=== PATIENT | male | born 1965 | race Caucasian/White ===

== ENCOUNTER 2018-08-23 07:30 | Day surgery (SDC) | payer BC ==
[~2018-08-23 07:30] MED LIST: LACTATED RINGERS 1,000 ML IV SCH; LIDOCAINE 1% 20 ML VIAL (10MG/ML) FOR IV START INTRADERMA PRN
[2018-08-23 08:27] VITALS: RESP 16; TEMP 97.9
[2018-08-23] MEDS ORDERED: LIDOCAINE 1% INJ 10MG/ML (20 ML MDV) ONE (09:05)
[2018-08-23] MEDS ORDERED: MIDAZOLAM 2 MG/2 ML VIAL ONE (09:05)
[2018-08-23] MEDS ORDERED: PROPOFOL 10 MG/ML 20 ML VIAL IV ONE (09:05)
[2018-08-23] MEDS ORDERED: fentaNYL (PF) 50 MCG/ML 2 ML AMP ONE (09:05)
--- NOTE | 2018-08-23 09:44 | P.PCN ---
Date of Procedure: 08/23/18 Procedure(s) Performed: Procedure: Total colonoscopy. Preoperative diagnosis: Screening for neoplasia. Postoperative diagnosis: Sigmoid diverticulosis with no evidence of acute diverticulitis, strictures, polyps or cancer. Preparation: HalfLytely prep. Sedation: Was provided by anesthesia. Brief clinical history: The patient is a 53-year-old male who is scheduled for this evaluation for screening for neoplasia age being his risk factor. He has no abdominal complaints, bleeding or anemia. This would be his first colonoscopy. Procedure: With the patient on his left lateral decubitus position and after informed consent and adequate sedation, the perianal area was inspected and it did not show any fissures or fistulas. There were no masses felt on digital rectal examination. The Olympus CFH 190L video colonoscope was then inserted in the rectum in the usual fashion and advanced to the cecum. There were several diverticular orifices seen scattered in the sigmoid but there was no evidence of acute diverticulitis or strictures. No polyps or tumors were seen. The mucosa appeared healthy. I retroflexed the endoscope in the rectum before the endoscope was withdrawn. The patient tolerated the procedure well. Plan: The patient was reassured. Discussed dietary measures. She will follow- up with you as planned and I recommended repeat exam in 10 years.
[2018-08-23 10:02] VITALS: BP 125/87; PULSE 74
== END 2018-08-23 10:27 | disposition home or self-care (01) ==
LOC: ORWHC2ENDO 07:30
DX: Z12.11 Encounter for screening for malignant neoplasm of colon (principal); K57.30 Diverticulosis of large intestine without perforation or abscess without bleeding; E78.5 Hyperlipidemia, unspecified; E07.9 Disorder of thyroid, unspecified; Z79.890 Hormone replacement therapy; Z79.899 Other long term (current) drug therapy
CPT/HCPCS: 45378; J2250; J2001; J3010; J2704

== ENCOUNTER 2023-11-03 11:15 | Day surgery (SDC) | payer BC ==
[2023-11-03 12:38] VITALS: TEMP 97.5
[2023-11-03] MEDS: LACTATED RINGERS 1,000 ML IV SCH (12:48)
[2023-11-03] MEDS ORDERED: PROPOFOL 10 MG/ML 20 ML VIAL IV ONE (13:25)
[2023-11-03] MEDS ORDERED: LIDOCAINE 1% INJ 10MG/ML (20 ML MDV) ONE (13:25)
--- NOTE | 2023-11-03 13:38 | P.PCN ---
Date of Procedure: 11/03/23 Procedure(s) Performed: BRIEF HISTORY: Patient is a 58-year-old, pleasant, white male scheduled for an upper endoscopy as a part of evaluation of intermittent dysphagia to solids for the last 6 months duration. He has long-standing history of GERD and presently on Protonix 40 mg as needed. PROCEDURE PERFORMED: Esophagogastroduodenoscopy with biopsy. PREOPERATIVE DIAGNOSIS: Lungs any history of GERD and intermittent dysphagia to solids. IV sedation per anesthesia. PROCEDURE: After informed consent was obtained, the patient was brought into the endoscopy unit. IV sedation was administered by Anesthesia under continuous monitoring. Initially the Olympus GIF-140 video endoscope was inserted into the mouth. Esophagus intubated without any difficulty. It was gradually advanced into the stomach and duodenum and carefully examined. The bulb and the second part of the duodenum appeared normal. The scope at this time was withdrawn to the stomach, adequately insufflated with air, and upon careful examination, mucosa of the antrum, had mild antral gastritis and biopsies were done from this area. Mucosa of the body, cardia and the fundus appeared normal. The scope was then withdrawn into the esophagus. The GE junction was located at 39 cm from the incisors. There were linear erosions and once a fissure ulceration in the distal esophagus consistent with LA grade C reflux esophagitis. The rest of esophagus appeared normal and the patient tolerated the procedure well. IMPRESSION: 1. Linear erosions and one superficial ulceration in the distal esophagus consistent with LA grade C reflux esophagitis. 2. Small hiatal hernia 3. Mild antral gastritis.. RECOMMENDATIONS: The findings of this examination were discussed with the patientas well as his family. He was advised to start on Protonix 40 mg twice daily for 3 months and then once daily as a maintenance dose to be taken half hour before breakfast and dinnertime and follow antireflux measures. Recommend repeat upper endoscopy in 1 year to evaluate for Adkins's esophagus].
[2023-11-03 14:42] VITALS: BP 138/83; PULSE 74; RESP 18
== END 2023-11-03 14:18 | disposition home or self-care (01) ==
LOC: ORWHC2ENDO 11:15
PROVIDERS: ATTEND Internal Medicine Gastroenterology
DX: K29.50 Unspecified chronic gastritis without bleeding (principal); K21.00 Gastro-esophageal reflux disease with esophagitis, without bleeding; K44.9 Diaphragmatic hernia without obstruction or gangrene; E78.5 Hyperlipidemia, unspecified; E07.9 Disorder of thyroid, unspecified; Z79.890 Hormone replacement therapy; Z79.899 Other long term (current) drug therapy; Z98.890 Other specified postprocedural states
CPT/HCPCS: 88305; 43239; J2001; J2704

== ENCOUNTER 2024-12-18 09:14 | Day surgery (SDC) | payer BC ==
[2024-12-13 14:04] VITALS: BMI 26.4
[~2024-12-18 09:14] MED LIST changes: +LIDOCAINE 1% (10MG/ML) FOR IV START INTRADERMA PRN; -LIDOCAINE 1% 20 ML VIAL (10MG/ML) FOR IV START INTRADERMA PRN
[2024-12-18] MEDS: IV FLUID CONTINUATION 1,000 ML IV ONE ×2 (09:56→10:22)
[2024-12-18 09:59] VITALS: TEMP 97.8
[2024-12-18] MEDS ORDERED: PROPOFOL 10 MG/ML 20 ML VIAL IV ONE (10:23)
[2024-12-18] MEDS ORDERED: LIDOCAINE HCL/PF 20 MG/ML 10 ML AMP ONE (10:23)
--- NOTE | 2024-12-18 10:35 | P.PCN ---
Date of Procedure: 12/18/24 Procedure(s) Performed: BRIEF HISTORY: Patient is a 59-year-old, pleasant, white male scheduled for upper endoscopy as a part of evaluation of severe GERD. Last EGD in October 2023 revealed LA grade C reflux esophagitis. Since then has been on Protonix 40 mg daily and symptoms are completely resolved. PROCEDURE PERFORMED: Esophagogastroduodenoscopy with biopsy. PREOPERATIVE DIAGNOSIS: Longstanding history of GERD with severe esophagitis in October 2023. IV sedation per anesthesia. PROCEDURE: After informed consent was obtained, the patient was brought into the endoscopy unit. IV sedation was administered by Anesthesia under continuous monitoring. Initially the Olympus GIF-140 video endoscope was inserted into the mouth. Esophagus intubated without any difficulty. It was gradually advanced into the stomach and duodenum and carefully examined. The bulb and the second part of the duodenum appeared normal. The scope at this time was withdrawn to the stomach, adequately insufflated with air, and upon careful examination, mucosa of the antrum, body, cardia and the fundus appeared normal. The scope was then withdrawn into the esophagus. Small hiatal hernia noted. The GE junction was located at 39 cm from the incisors. There was a 1 cm superficial ulceration in the distal esophagus consistent with LA grade C reflux esophagitis. Also there was a 3 to 4 mm Adkins's appearing mucosa proximal to the GE junction that was biopsied. The rest of the esophagus appeared normal. The patient tolerated the procedure well. IMPRESSION: 1. 1 superficial ulceration in the distal esophagus proximal to the GE junction consistent with LA grade C reflux esophagitis. 2. Short segment Adkins's esophagus 3. Small hiatal hernia. RECOMMENDATIONS: The findings of this examination were discussed with the patient as well as his family. He was advised to follow-up with the biopsy results. Recommend to increase her Protonix to 40 mg twice daily for 3 months and then cut it down to once daily as a maintenance dose.. Recommend repeat upper endoscopy in 1 to 2 years.
[2024-12-18 11:19] VITALS: BP 124/82; PULSE 63; RESP 18
== END 2024-12-18 11:40 | disposition home or self-care (01) ==
LOC: ORWHC2ENDO 09:14
PROVIDERS: ATTEND Internal Medicine Gastroenterology
DX: K21.00 Gastro-esophageal reflux disease with esophagitis, without bleeding (principal); K22.10 Ulcer of esophagus without bleeding; K29.50 Unspecified chronic gastritis without bleeding; K44.9 Diaphragmatic hernia without obstruction or gangrene
CPT/HCPCS: 43239; J2003; J2704; 88305